=== PATIENT | male | born 1945 | race Caucasian/White ===

== ENCOUNTER 2022-11-19 18:58 | Emergency (ER) | payer MEDICARE, OTHER, SELFPAY ==
[2022-11-19 19:15] VITALS: BP 203/95; PULSE 74; RESP 16; TEMP 36.3; O2SAT 97; BMI 33.7
--- NOTE | 2022-11-19 19:32 | ED.ABDPAIN ---
HPI - Abdominal Pain General Chief Complaint: Abdominal Pain Stated Complaint: thinks appendicitis/pain in right abd area Time Seen by Provider: 11/19/22 19:25 Source: patient Mode of arrival: Family Vehicle History of Present Illness HPI narrative: Patient is a 77 year old male with history of hypertension presenting today with right lower quadrant pain ongoing for the last couple of days. He denies any nausea or vomiting. No change in bowel habits. He is no chest pain or palpitations. He has chronic ongoing back pain but the pain does not seem to be radiating to stomach. No prior history of kidney stones. He is not had any fever or chills. No difficulty with ambulation. Related Data Allergies Allergy/AdvReac Type Severity Reaction Status Date / Time Oxycodone Allergy Unknown Uncoded 10/10/17 12:14 Review of Systems Review of Systems ROS Unobtainable: All systems reviewed & are unremarkable except as noted in HPI and below Exam Initial Vital Signs Initial Vital Signs: Vital Signs Temperature 97.4 F L 11/19/22 19:15 Pulse Rate 74 11/19/22 19:15 Respiratory Rate 16 11/19/22 19:15 Blood Pressure 203/95 H 11/19/22 19:15 Pulse Oximetry 97 11/19/22 19:15 Oxygen Delivery Method Room Air 11/19/22 19:15 GENERAL: Alert hard of hearing 69-year-old male in no acute distress HEENT: Head atraumatic,EOMI, pupils reactive, face symmetric, moist mucous membranes CARDIOVASCULAR: Regular rate and rhythm without murmurs, rubs or gallops. RESPIRATORY: Breath sounds equal bilaterally, no wheezes rales or rhonchi. ABDOMEN: Soft, tender right lower quadrant pain no guarding no rebound : No CVA tenderness EXTREMITIES: Normal range of motion, no clubbing or edema. Neurovascularly intact NEUROLOGICAL: Alert and oriented x4. SKIN: Warm, dry, no laceration, no petechiae, no rashes or lesions. Course Orders Ordered: ED Orders 11/19/22 19:26 Complete Blood Count AUTO DIFF Stat Comprehensive Metabolic Panel Stat Lipase Stat EKG-12 Lead Stat 11/19/22 19:35 Urine Culture Stat Urine Microscopic Stat 11/19/22 19:38 CT abdomen pelvis w con Stat Discontinued Medications Ondansetron HCl (Ondansetron 4 Mg Odt) 4 mg PO NOW PRN PRN Reason: Nausea And Vomiting Ondansetron HCl (Ondansetron 4 Mg/2 Ml Inj) 4 mg IV NOW PRN PRN Reason: Nausea And Vomiting Vital Signs Vital signs: Vital Signs - 8 hr 11/19/22 19:15 11/19/22 19:36 11/19/22 19:37 Temperature 97.4 F L Pulse Rate 74 72 Respiratory Rate 16 18 Blood Pressure 203/95 H 201/87 H Pulse Oximetry 97 97 Oxygen Delivery Method Room Air Room Air 11/19/22 21:22 Temperature Pulse Rate 68 Respiratory Rate 18 Blood Pressure 161/79 H Pulse Oximetry 96 Oxygen Delivery Method Room Air MDM - Abdominal Pain Lab Data 11/19/22 19:26 11/19/22 19:26 Labs: Lab Results 11/19/22 11/19/22 11/19/22 Range/Units 19:26 19:26 19:35 WBC 10.7 (4.5-11.0) X10^3/uL RBC 4.83 (4.5-5.9) X10^6/uL Hgb 14.2 (13.5-17.5) g/dL Hct 42.2 (41-53) % MCV 87.3 (80-100) fL MCH 29.3 (26-34) PG MCHC 33.6 (30-36) % RDW 14.7 (11.6-14.8) % Plt Count 218 (150-400) X10^3/uL Neut % (Auto) 68.1 (50-75) % Lymph % (Auto) 22.1 L (25-40) % [place] % (Auto) 7.8 (3-14) % Eos % (Auto) 0.9 L (2-4) % Baso % (Auto) 1.1 (0-2) % Neut # (Auto) 7300 H (8396-2285) /uL Lymph # (Auto) 2400 (2715-7055) /uL [place] # (Auto) 800 (0-900) /uL Eos # (Auto) 100 (0-450) /uL Baso # (Auto) 100 (0-100) /uL Sodium 139 (137-145) mmol/L Potassium 3.6 (3.4-5.1) mmol/L Chloride 103 (98-107) mmol/L Carbon Dioxide 27 (22-32) mmol/L BUN 20 (9-20) mg/dL Creatinine 0.94 (0.66-1.25) mg/dL Estimated GFR > 60 (>60) mL/min BUN/Creatinine Ratio 21.3 (6-22) Glucose 146 H (80-110) mg/dL Calcium 9.4 (8.4-10.2) mg/dL Total Bilirubin 0.5 (0.2-1.3) mg/dL AST 24 (17-59) IU/L ALT 22 (<50) IU/L Alkaline Phosphatase 81 (38-126) U/L Total Protein 8.3 H (6.3-8.2) g/dL Albumin 4.4 (3.5-5.0) g/dL Globulin 3.9 (1.7-4.1) g/dL Albumin/Globulin Ratio 1.1 (1.0-2.8) Lipase 62 (23-300) U/L Urine RBC 0-1/hpf (0-5/HPF) Urine WBC 1-5/hpf (0-5/HPF) Urine Bacteria None seen (None) Point of care testing: Urine Dip Bedside Urine Glucose Negative Bedside Urine Bilirubin - Negative Bedside Urine Ketone - Negative Urine Specific [place] 1.020 Bedside Urine Occult Blood - Negative Bedside Urine pH 6.0 Bedside Urine Protein +/- 15 Bedside Urine Urobilinogen - Negative Bedside Urine Nitrite - Negative Bedside Urine Leukocytes - Negative Esterase Imaging Data CT scan - abdomen/pelvis: Radiologist's Impression: PROCEDURE:? CT ABDOMEN PELVIS W CON ? INDICATIONS:? rlq pain ? TECHNIQUE:? After the administration of oral and IV contrast, axial sections were acquired from the lung bases to the pubic symphysis.? Coronal and sagittal reformats were performed.? For radiation dose reduction, the following was used:? automated exposure control, adjustment of mA and/or kV according to patient size. ? COMPARISON:? None. ? FINDINGS:? Image quality:? Excellent.? ? Lung bases:? Unremarkable.? ? Heart:? Heart is normal in size. ? ? ABDOMEN: Liver:? There are a few small hypodense foci in the liver which are too small to characterize but likely represent cysts. Gallbladder:? Within normal limits without calcified gallstones.? ? Biliary ducts:? No biliary ductal dilatation.? ? Pancreas:? Unremarkable.? ? Spleen:? Normal in size.? ? Adrenal Glands:? No adrenal nodules.? ? Kidneys and Ureters:? No hydronephrosis.? There are 2 nonobstructing stones in the right kidney with the largest measuring up to 0.4 cm.? Mild nonspecific perinephric stranding demonstrated bilaterally. ? ? Stomach and Bowel:? Stomach, small bowel loops, and colon are normal in caliber and wall thickness.? The appendix is normal.? There is colonic diverticulosis throughout the colon without acute diverticulitis.? There is a diverticulum of the descending portion of the duodenum without associated inflammatory changes. Peritoneum:? No abnormal intraperitoneal fluid.? No free air.? ? Ventral Wall: ? No hernia.? Abdominal Nodes:? No retroperitoneal or mesenteric adenopathy by size criteria.? Vessels:? Aorta and inferior vena cava are normal in size.? ? PELVIS: Pelvic Organs:? Unremarkable.? ? Bladder:? Unremarkable.? ? Pelvic Nodes: No enlarged lymph nodes.? Miscellaneous:? There are bilateral small fat-containing inguinal hernias, right greater than left. ? ? ? Bones:? There are bilateral pars defects at L5 with minimal anterolisthesis of L5 on S1.? Multilevel moderate to severe degenerative disc disease demonstrated within the mid and lower lumbar spine as well as moderate facet arthropathy in the lower lumbar spine.? Visualized osseous structures demonstrate no suspicious focal lesions. ? IMPRESSION:? ? 1. No evidence of appendicitis. ? 2. Colonic diverticulosis without acute diverticulitis. ? 3. Right nephrolithiasis without obstructive uropathy. ? ? Dictated by: Bharath Barfield M.D. on 11/19/2022 at 20:43 ? ? ECG Data Interpretation: Rate 77 see a P-wave in lead 2 and AVF no other P waves regular wide complex QTC is [address] changes MDM Narrative Medical decision making narrative: Patient is 69-year-old male presenting today with right lower quadrant pain. Says it comes and goes. Blood work is overall reassuring, no leukocytosis no anemia, no electrolyte abnormality or MIRIAM. CT is negative for diverticulitis appendicitis nephrolithiasis cholelithiasis cholecystitis. Unknown what is causing his pain upon reexamination he reports that the pain is gone. He is noted have a quite elevated blood pressure in the 200s it does improve to 189. He reports that he has high blood pressure checks it at home and takes his medication. EKG does not show any signs of ischemia there is 1p waves noted V4 V5 V6 and lead to but not consistent P waves, does not appear to be AFib or a flutter possible junctional patient is asymptomatic recommend follow-up. Discharge Plan Departure Patient Disposition: Home Clinical Impression: Abdominal pain, Hypertension Instructions: DI for Abdominal Pain-Adult Activity Restrictions/Additional Instructions: *You have been diagnosed with abdominal pain *What to do: This time blood work and CT scan do not show any sign of appendicitis or other cause of your abdominal pain. Please continue to monitor. Also please check your blood pressure regularly it was noted to be elevated here in the ED. You may require change in medication. *Continue to take medications as directed *Follow up with your primary care provider in 2-3 days or call [phone] *Return to ER if you should have increasing pain nausea vomiting chest pain palpitations or any new, worsening or concerning symptoms Referrals: Bobo Stovall MD [Primary Care Provider] - Stand Alone Forms: Patient Portal/API
[2022-11-19 19:34] LABS: Add Manual Diff / Slide Review NO; Basophils Absolute Auto 100 /uL (0-100); Basophils Percent Auto 1.1 % (0-2); Eosinophils Absolute Auto 100 /uL (0-450); Eosinophils Percent Auto 0.9 % (2-4); Hematocrit 42.2 % (41-53); Hemoglobin 14.2 g/dL (13.5-17.5); Lymphocytes Absolute Auto 2400 /uL (1100-4500); Lymphocytes Percent Auto 22.1 % (25-40); Mean Corpuscular HGB Conc 33.6 % (30-36); Mean Corpuscular Hemoglobin 29.3 PG (26-34); Mean Corpuscular Volume 87.3 fL (80-100); Monocytes Absolute Auto 800 /uL (0-900); Monocytes Percent Auto 7.8 % (3-14); Neutrophils Absolute Auto 7300 /uL (1500-7000); Neutrophils Percent Auto 68.1 % (50-75); Platelet Count 218 X10^3/uL (150-400); Red Blood Cell Count 4.83 X10^6/uL (4.5-5.9); Red Cell Distribution Width 14.7 % (11.6-14.8); White Blood Cell Count 10.7 X10^3/uL (4.5-11.0)
[2022-11-19 19:36] VITALS: BP 201/87; RESP 18
[2022-11-19 19:37] VITALS: PULSE 72; O2SAT 97
--- NOTE | 2022-11-19 19:38 | DI.CT.S_ITS ---
PROCEDURE: CT ABDOMEN PELVIS W CON INDICATIONS: rlq pain TECHNIQUE: After the administration of oral and IV contrast, axial sections were acquired from the lung bases to the pubic symphysis. Coronal and sagittal reformats were performed. For radiation dose reduction, the following was used: automated exposure control, adjustment of mA and/or kV according to patient size. COMPARISON: None. FINDINGS: Image quality: Excellent. Lung bases: Unremarkable. Heart: Heart is normal in size. ABDOMEN: Liver: There are a few small hypodense foci in the liver which are too small to characterize but likely represent cysts. Gallbladder: Within normal limits without calcified gallstones. Biliary ducts: No biliary ductal dilatation. Pancreas: Unremarkable. Spleen: Normal in size. Adrenal Glands: No adrenal nodules. Kidneys and Ureters: No hydronephrosis. There are 2 nonobstructing stones in the right kidney with the largest measuring up to 0.4 cm. Mild nonspecific perinephric stranding demonstrated bilaterally. Stomach and Bowel: Stomach, small bowel loops, and colon are normal in caliber and wall thickness. The appendix is normal. There is colonic diverticulosis throughout the colon without acute diverticulitis. There is a diverticulum of the descending portion of the duodenum without associated inflammatory changes. Peritoneum: No abnormal intraperitoneal fluid. No free air. Ventral Wall: No hernia. Abdominal Nodes: No retroperitoneal or mesenteric adenopathy by size criteria. Vessels: Aorta and inferior vena cava are normal in size. PELVIS: Pelvic Organs: Unremarkable. Bladder: Unremarkable. Pelvic Nodes: No enlarged lymph nodes. Miscellaneous: There are bilateral small fat-containing inguinal hernias, right greater than left. Bones: There are bilateral pars defects at L5 with minimal anterolisthesis of L5 on S1. Multilevel moderate to severe degenerative disc disease demonstrated within the mid and lower lumbar spine as well as moderate facet arthropathy in the lower lumbar spine. Visualized osseous structures demonstrate no suspicious focal lesions. IMPRESSION: 1. No evidence of appendicitis. 2. Colonic diverticulosis without acute diverticulitis. 3. Right nephrolithiasis without obstructive uropathy. Dictated by: Bharath Barfield M.D. on 11/19/2022 at 20:43 Approved by: Bharath Barfield M.D. on 11/19/2022 at 20:48
[2022-11-19 19:45] LABS: Alanine Aminotransferase 22 IU/L (<50); Albumin 4.4 g/dL (3.5-5.0); Albumin Globulin Ratio 1.1 (1.0-2.8); Alkaline Phosphatase 81 U/L (38-126); Aspartate Aminotransferase 24 IU/L (17-59); BUN Creatinine Ratio 21.3 (6-22); Bilirubin Total 0.5 mg/dL (0.2-1.3); Blood Urea Nitrogen 20 mg/dL (9-20); Calcium 9.4 mg/dL (8.4-10.2); Carbon Dioxide 27 mmol/L (22-32); Chloride 103 mmol/L (98-107); Estimated Glomerular Filt Rate > 60 mL/min (>60); Globulin 3.9 g/dL (1.7-4.1); Glucose 146 mg/dL (80-110); HEMOLYSIS 19 (0-50); Lipase 62 U/L (23-300); Potassium 3.6 mmol/L (3.4-5.1); Sodium 139 mmol/L (137-145); Total Protein 8.3 g/dL (6.3-8.2)
[2022-11-19 20:17] LABS: Bacteria Urine None Seen; RBC Urine 0-1/HPF (0-5/HPF); WBC Urine 1-5/HPF (0-5/HPF)
[2022-11-19 21:22] VITALS: BP 161/79; PULSE 68; RESP 18; O2SAT 96
== END 2022-11-19 21:23 | disposition home or self-care (01) ==
PROVIDERS: Emergency Provider Emergency Medicine; Family Provider Family Medicine; PCP Family Medicine
DX: R10.31 Right lower quadrant pain (principal); I10 Essential (primary) hypertension
CPT/HCPCS: 36415; 74177; 80053; 81003; 81015; 83690; 85025; 87086; 93005; 93010; 99284; Q9967